=== PATIENT | female | born 1975 | race Caucasian/White ===

== ENCOUNTER 2017-04-08 12:38 | Observation (INO) | payer SELFPAY ==
[~2017-04-08] VITALS: Ht 160 cm; Wt 66.2 kg
[~2017-04-08 12:38] MED LIST: ALPR-138 PO
[2017-04-08 12:50] VITALS: BP 131/88; PULSE 70; RESP 18; TEMP 97.6; O2SAT 98
--- NOTE | 2017-04-08 12:51 | PD ---
HPI Chief Complaint: Chest Pain Time Seen by Provider: 12:49 Travel History International Travel<30 days: No Contact w/Intl Traveler<30days: No Traveled to known affect area: No History of Present Illness HPI 41-year-old female with history of no significant past medical issues, presents to the ER with 2 weeks history of intermittent sharp chest pains which is left parasternal, currently a 6 out of 10. She states it gets worse sometimes with coughing. She denies any fevers, shortness of breath, vomiting, or any recent significant coughing. She states that she has just noticed it in the past few weeks. She wanted to get checked out. She states that both her father and grandfather has had MIs in the past, in their 60s. Modifying Factors: Worse with coughing Associated Signs & Symptoms: Chest pains Risk Factors: None PFSH Past Medical History Anxiety: Yes Diminished Hearing: No Endocrine: Yes (HYPOGLYCEMIA) : 1 Para: 0 Miscarriage: 1 : 0 Social History Alcohol Use: Yes Tobacco Use: Yes (1PPD) Substance Use: No Allergies-Medications (Allergen,Severity, Reaction): Coded Allergies: Latex (Verified Allergy, Intermediate, Rash, 04/08/17) Reported Meds & Prescriptions Reported Meds & Active Scripts Active No Active Prescriptions or Reported Medications Review of Systems Except as stated in HPI: all other systems reviewed are Neg Physical Exam Narrative GENERAL: Well-developed middle age white female patient currently in mild distress. Awake and oriented 3. SKIN: Focused skin assessment warm/dry. HEAD: Atraumatic. Normocephalic. EYES: Pupils equal and round. No scleral icterus. No injection or drainage. ENT: No nasal bleeding or discharge. Mucous membranes pink and moist. NECK: Trachea midline. No JVD. CARDIOVASCULAR: Regular rate and rhythm. No murmur appreciated. RESPIRATORY: No accessory muscle use. Clear to auscultation. Breath sounds equal bilaterally. GASTROINTESTINAL: Abdomen soft, non-tender, nondistended. Hepatic and splenic margins not palpable. MUSCULOSKELETAL: No obvious deformities. No clubbing. No cyanosis. No edema. NEUROLOGICAL: Awake and alert. No obvious cranial nerve deficits. Motor grossly within normal limits. Normal speech. PSYCHIATRIC: Appropriate mood and affect; insight and judgment normal. Data Data Last Documented VS Vital Signs Date Time Temp Pulse Resp B/P Pulse Ox O2 Delivery O2 Flow Rate FiO2 04/08/17 13:56 125/77 131/81 04/08/17 13:51 57 16 97 Room Air 04/08/17 12:50 97.6 Orders Electrocardiogram (04/08/17 12:49) Ckmb (Isoenzyme) Profile (04/08/17 12:49) Complete Blood Count With Diff (04/08/17 12:49) Comprehensive Metabolic Panel (04/08/17 12:49) D-Dimer (04/08/17 12:49) Magnesium (Mg) (04/08/17 12:49) Prothrombin Time / Inr (Pt) (04/08/17 12:49) Act Partial Throm Time (Ptt) (04/08/17 12:49) Troponin I (04/08/17 12:49) Chest, Single Ap (04/08/17 12:49) Ecg Monitoring (04/08/17 12:49) Bilateral Bp Monitoring (04/08/17 12:49) Iv Access Insert/Monitor (04/08/17 12:49) Oximetry (04/08/17 12:49) Oxygen Administration (04/08/17 12:49) Sodium Chloride 0.9% Flush (Ns Flush) (04/08/17 13:00) Ed Urine Pregnancytest Poc (04/08/17 12:49) Labs Laboratory Tests Test 04/08/17 13:10 White Blood Count 7.6 TH/MM3 Red Blood Count 4.16 MIL/MM3 Hemoglobin 12.9 GM/DL Hematocrit 38.0 % Mean Corpuscular Volume 91.3 FL Mean Corpuscular Hemoglobin 31.0 PG Mean Corpuscular Hemoglobin 34.0 % Concent Red Cell Distribution Width 12.4 % Platelet Count 344 TH/MM3 Mean Platelet Volume 7.5 FL Neutrophils (%) (Auto) 57.9 % Lymphocytes (%) (Auto) 32.4 % Monocytes (%) (Auto) 8.4 % Eosinophils (%) (Auto) 0.7 % Basophils (%) (Auto) 0.6 % Neutrophils # (Auto) 4.5 TH/MM3 Lymphocytes # (Auto) 2.4 TH/MM3 Monocytes # (Auto) 0.6 TH/MM3 Eosinophils # (Auto) 0.1 TH/MM3 Basophils # (Auto) 0.0 TH/MM3 CBC Comment DIFF FINAL Differential Comment Prothrombin Time 10.1 SEC Prothromb Time International 0.9 RATIO Ratio Activated Partial 26.5 SEC Thromboplast Time D-Dimer Quantitative (PE/DVT) 0.29 MG/L FEU Sodium Level 141 MEQ/L Potassium Level 3.9 MEQ/L Chloride Level 105 MEQ/L Carbon Dioxide Level 28.7 MEQ/L Anion Gap 7 MEQ/L Blood Urea Nitrogen 9 MG/DL Creatinine 0.83 MG/DL Estimat Glomerular Filtration 77 ML/MIN Rate Random Glucose 132 MG/DL Calcium Level 8.6 MG/DL Magnesium Level 1.8 MG/DL Total Bilirubin 0.5 MG/DL Aspartate Amino Transf 11 U/L (AST/SGOT) Alanine Aminotransferase 18 U/L (ALT/SGPT) Alkaline Phosphatase 64 U/L Total Creatine Kinase 59 U/L Troponin I LESS THAN 0.02 NG/ML Total Protein 7.2 GM/DL Albumin 3.7 GM/DL MDM Medical Decision Making Medical Screen Exam Complete: Yes Emergency Medical Condition: Yes Medical Record Reviewed: Yes Interpretation(s) EKG shows NSR, no ST elevation or depression, and no arrhythmias. No significant T-wave inversions. Laboratory Tests Test 04/08/17 13:10 Monocytes (%) (Auto) 8.4 % (0.0-8.0) Estimat Glomerular Filtration 77 ML/MIN (>89) Rate Random Glucose 132 MG/DL (74-106) Aspartate Amino Transf 11 U/L (15-37) (AST/SGOT) Troponin I LESS THAN 0.02 NG/ML (0.02-0.05) Last 24 hours Impressions Chest X-Ray 04/08/17 1249 Signed Impressions: Service Date/Time: Saturday, April 08, 2017 13:13 - CONCLUSION: 1. No acute cardiopulmonary disease. Aneesh Azevedo MD Differential Diagnosis Chest painscostochondritis versus pneumonia versus PE versus ACS Narrative Course EKG, chest x-ray, lab work was otherwise unremarkable. At this point, my plan would be to admit her for chest pain in the chest pain center for further evaluation. Case was discussed with Dr. Nunez for admission. Diagnosis Primary Impression: Atypical chest pain Admitting Information Admitting Physician Requests: Admit Scripts No Active Prescriptions or Reported Meds Johann Rasmussen MD Apr 08, 2017 12:51
[2017-04-08 13:21] LABS: AUTOMATED NEUTROPHIL # 4.5 TH/MM3 (1.8-7.7); BASOPHIL % 0.6 % (0.0-2.0); EOSINOPHIL # 0.1 TH/MM3 (0-0.4); EOSINOPHIL % 0.7 % (0.0-4.0); HEMO FLAGS DIFF FINAL; LYMPH % 32.4 % (9.0-44.0); LYMPHOCYTE # 2.4 TH/MM3 (1.0-4.8); MEAN CELL VOLUME 91.3 FL (80.0-100.0); MONO % 8.4 % (0.0-8.0); NEUT % 57.9 % (16.0-70.0); PLATELET COUNT 344 TH/MM3 (150-450); RED BLOOD COUNT 4.16 MIL/MM3 (4.00-5.30); RED CELL DISTRIBUTION WIDTH 12.4 % (11.6-17.2); WHITE BLOOD COUNT 7.6 TH/MM3 (4.0-11.0)
[2017-04-08 13:25] LABS: CHLORIDE 105 MEQ/L (98-107); POTASSIUM 3.9 MEQ/L (3.5-5.1); SODIUM (NA) 141 MEQ/L (136-145)
[2017-04-08 13:29] LABS: ANION GAP 7 MEQ/L (5-15); BICARBONATE 28.7 MEQ/L (21.0-32.0); BLOOD UREA NITROGEN 9 MG/DL (7-18); MAGNESIUM 1.8 MG/DL (1.5-2.5)
[2017-04-08 13:32] LABS: ALT (GPT) 18 U/L (10-53); AST (GOT) 11 U/L (15-37); GLOMERULAR FILTRATION RATE 77 ML/MIN (>89)
[2017-04-08 13:33] LABS: TOTAL BILIRUBIN ADULT 0.5 MG/DL (0.2-1.0)
[2017-04-08 13:35] LABS: ALKALINE PHOSPHATASE 64 U/L (45-117)
--- NOTE | 2017-04-08 13:37 | RADRPT ---
EXAM DATE/TIME: 04/08/2017 13:13 [facility] COMPARISON: No previous studies available for comparison. INDICATIONS : Chest pain MEDICAL HISTORY : None. SURGICAL HISTORY : None. ENCOUNTER: Initial ACUITY: 2 months PAIN SCORE: 6/10 LOCATION: Left middle chest FINDINGS: A single view of the chest demonstrates the lungs to be symmetrically aerated without evidence of mas s, infiltrate or effusion. The cardiomediastinal contours are unremarkable. Osseous structures are intact. CONCLUSION: 1. No acute cardiopulmonary disease. Aneesh Azevedo MD on April 08, 2017 at 13:36 Board Certified Radiologist. This report was verified electronically.
[2017-04-08 13:41] LABS: APTT (PATIENT) 26.5 SEC (24.3-30.1); INTERNATIONAL NORMALIZED RATIO 0.9 RATIO; PROTHROMBIN TIME - PATIENT 10.1 SEC (9.8-11.6)
[2017-04-08 13:44] LABS: CREATINE KINASE 59 U/L (26-192)
[2017-04-08 13:55] VITALS: BP 131/81; PULSE 56; RESP 16; O2SAT 97
[2017-04-08 13:56] VITALS: BP_SYST 125; BP_SYST 131; BP_DIAS 77; BP_DIAS 81
[2017-04-08] MEDS ORDERED: ACETAMINOPHEN 325 MG TAB PO PRN (14:15)
--- NOTE | 2017-04-08 14:23 | HHI.HP ---
[facility] No Primary Care Physician Admission Diagnosis atypical chest pain Diagnoses: (1) Atypical chest pain Diagnosis: Principal Chief Complaint: chest pain Travel History International Travel<30 Days: No Contact w/Intl Traveler <30 Da: No Traveled to Known Affected Are: No History of Present Illness patient is a 41 y/o female with no significant past medical history who presented with chest pain. she says that she's been under a lot of stress and had to do lots of physical work recently. she says that she's had chest pain for the past two months. pain is sharp,intermittent with no radiation. the pain is localized to left lateral chest.pain has been associated with on and off nausea and sob. Review of Systems Constitutional: DENIES: Fever, Weight loss, Chills, Night Sweats Eyes: DENIES: Blurred vision, Diplopia, Vision loss, Double Vision Ears, nose, mouth, throat: DENIES: Tinnitus, Vertigo, Throat pain, Epistaxis Respiratory: DENIES: Apneas, Cough, Snoring, Wheezing, Hemoptysis, Sputum production, Shortness of breath Cardiovascular: COMPLAINS OF: Chest pain, Dyspnea on Exertion, DENIES: Palpitations, Syncope, PND, Lower Extremity Edema, Orthopnea, Claudication Gastrointestinal: COMPLAINS OF: Nausea, DENIES: Abdominal pain, Black stools, Bloody stools, Constipation, Diarrhea, Vomiting, Difficulty Swallowing, Anorexia Genitourinary: DENIES: Urinary frequency, Urgency, Hematuria, Dysuria Musculoskeletal: DENIES: Joint pain, Muscle aches, Stiffness, Joint Swelling Integumentary: DENIES: Rash Neurologic: DENIES: Abnormal gait, Headache, Localized weakness, Paresthesias, Seizures, Speech Problems, Tremor, Poor Balance Psychiatric: DENIES: Anxiety, Confusion, Mood changes, Depression, Hallucinations, Agitation, Suicidal Ideation, Homicidal Ideation, Delusions Past Family Social History Past Medical History not significant. Reported Medications none reported. Allergies: Coded Allergies: Latex (Verified Allergy, Intermediate, Rash, 04/08/17) Active Ordered Medications Current Medications Sodium Chloride (NS Flush) 2 ml UNSCH PRN IVF FLUSH AFTER USING IV ACCESS; Start 04/08/17 at 13:00 Family History heart attack in the father at his 60's. Social History smokes a pack in one week- drinks occasionally- denies illicit drug abuse. Physical Exam Vital Signs Vital Signs Date Time Temp Pulse Resp B/P Pulse Ox O2 Delivery O2 Flow Rate FiO2 04/08/17 13:56 125/77 131/81 04/08/17 13:51 57 16 97 Room Air 04/08/17 12:50 97.6 70 18 131/88 98 04/08/17 12:50 98 Room Air 04/08/17 12:50 98 Room Air Physical Exam GENERAL: This is a well-nourished, well-developed patient, in no apparent distress. SKIN: No rashes, ecchymoses or lesions. Cool and dry. HEAD: Atraumatic. Normocephalic. No temporal or scalp tenderness. EYES: Pupils equal round and reactive. Extraocular motions intact. No scleral icterus. No injection or drainage. ENT: Nose without bleeding, purulent drainage or septal hematoma. Throat without erythema, tonsillar hypertrophy or exudate. Uvula midline. Airway patent. NECK: Trachea midline. No JVD or lymphadenopathy. Supple, nontender, no meningeal signs. CARDIOVASCULAR: Regular rate and rhythm without murmurs, gallops, or rubs. RESPIRATORY: Clear to auscultation. Breath sounds equal bilaterally. No wheezes , rales, or rhonchi. GASTROINTESTINAL: Abdomen soft, non-tender, nondistended. No hepato-splenomegaly , or palpable masses. No guarding. MUSCULOSKELETAL: Extremities without clubbing, cyanosis, or edema. No joint tenderness, effusion, or edema noted. No calf tenderness. Negative Homans sign bilaterally. NEUROLOGICAL: Awake and alert. Cranial nerves II through XII intact. Motor and sensory grossly within normal limits. Five out of 5 muscle strength in all muscle groups. Normal speech. Laboratory Laboratory Tests Test 04/08/17 13:10 White Blood Count 7.6 Red Blood Count 4.16 Hemoglobin 12.9 Hematocrit 38.0 Mean Corpuscular Volume 91.3 Mean Corpuscular Hemoglobin 31.0 Mean Corpuscular Hemoglobin 34.0 Concent Red Cell Distribution Width 12.4 Platelet Count 344 Mean Platelet Volume 7.5 Neutrophils (%) (Auto) 57.9 Lymphocytes (%) (Auto) 32.4 Monocytes (%) (Auto) 8.4 Eosinophils (%) (Auto) 0.7 Basophils (%) (Auto) 0.6 Neutrophils # (Auto) 4.5 Lymphocytes # (Auto) 2.4 Monocytes # (Auto) 0.6 Eosinophils # (Auto) 0.1 Basophils # (Auto) 0.0 CBC Comment DIFF FINAL Differential Comment Prothrombin Time 10.1 Prothromb Time International 0.9 Ratio Activated Partial 26.5 Thromboplast Time D-Dimer Quantitative (PE/DVT) 0.29 Sodium Level 141 Potassium Level 3.9 Chloride Level 105 Carbon Dioxide Level 28.7 Anion Gap 7 Blood Urea Nitrogen 9 Creatinine 0.83 Estimat Glomerular Filtration 77 Rate Random Glucose 132 Calcium Level 8.6 Magnesium Level 1.8 Total Bilirubin 0.5 Aspartate Amino Transf 11 (AST/SGOT) Alanine Aminotransferase 18 (ALT/SGPT) Alkaline Phosphatase 64 Total Creatine Kinase 59 Troponin I LESS THAN 0.02 Total Protein 7.2 Albumin 3.7 Result Diagram: 04/08/17 1310 04/08/17 1310 Imaging Last Impressions Chest X-Ray 04/08/17 1249 Signed Impressions: Service Date/Time: Saturday, April 08, 2017 13:13 - CONCLUSION: 1. No acute cardiopulmonary disease. Aneesh Azevedo MD EKG; sinus rhythm with no acute ST-T changes. Assessment and Plan Assessment and Plan A/P - atypical chest pain- had aspirin at home earlier- will trend the enzymes- although the ACS is unlikely and the pain is more musculoskeletal continue with pain control Discussed Condition With ER physician and the patient. Manuelito Ortega MD Apr 08, 2017 14:23
[2017-04-08] MEDS ORDERED: ONDANSETRON HCL 4 MG/2 ML VIAL IV PUSH PRN (14:30)
[2017-04-08 14:55] VITALS: BP 123/76; PULSE 60; RESP 16; O2SAT 97
[2017-04-08 15:30] VITALS: BP 125/80; PULSE 58; RESP 16; TEMP 98.2; O2SAT 96
[2017-04-08] MEDS: KETOROLAC TROMETHAMINE 30 MG/ML (IVP) VIAL IV PUSH PRN (16:49)
[2017-04-08] MEDS: SODIUM CHLOR 0.9% 1000 ML INJ 1,000 ML IV SCH (17:51)
[2017-04-08] MEDS ORDERED: MORPHINE SULFATE 4 MG/ML INJ IV PUSH ONE (18:45)
[2017-04-08 20:00] VITALS: BP 142/83; PULSE 53; PULSE 58; RESP 18; TEMP 97.4; O2SAT 98
[2017-04-08] MEDS: SODIUM CHLORIDE 0.9% FLUSH 10 ML FLUSH IVF PRN (20:57)
[2017-04-09] VITALS: BP 132/79; PULSE 47; RESP 18; TEMP 97.4; O2SAT 100
[2017-04-09] MEDS: KETOROLAC TROMETHAMINE 30 MG/ML (IVP) VIAL IV PUSH PRN (01:01)
[2017-04-09] MEDS: SODIUM CHLORIDE 0.9% FLUSH 10 ML FLUSH IVF PRN ×2 (01:01→05:45)
[2017-04-09 04:00] VITALS: BP 125/85; PULSE 70; RESP 18; TEMP 97.8; O2SAT 99
[2017-04-09] MEDS: SODIUM CHLOR 0.9% 1000 ML INJ 1,000 ML IV SCH (05:44)
[2017-04-09 08:00] VITALS: BP 121/75; PULSE 53; RESP 16; TEMP 97.4; O2SAT 98
--- NOTE | 2017-04-09 08:23 | HHI.PR ---
Subjective Remarks in no acute distress. chest pain has much improved. no other complaints. Objective Vitals Vital Signs Date Time Temp Pulse Resp B/P Pulse Ox O2 Delivery O2 Flow Rate FiO2 04/09/17 04:00 97.8 70 18 125/85 99 04/09/17 00:00 97.4 47 18 132/79 100 04/08/17 20:00 97.4 58 18 142/83 98 04/08/17 20:00 53 04/08/17 15:30 98.2 58 16 125/80 96 04/08/17 14:55 60 16 123/76 97 Room Air 04/08/17 13:56 125/77 131/81 04/08/17 13:55 56 16 131/81 97 Room Air 04/08/17 13:51 57 16 97 Room Air 04/08/17 12:50 97.6 70 18 131/88 98 04/08/17 12:50 98 Room Air 04/08/17 12:50 98 Room Air I/O 04/08/17 04/08/17 04/08/17 04/09/17 04/09/17 04/09/17 06:59 14:59 22:59 06:59 14:59 22:59 Intake Total 588 ml 782 ml Balance 588 ml 782 ml Intake Oral 420 ml IV Total 168 ml 782 ml # Voids 2 # Bowel Movements 0 Result Diagram: 04/08/17 1310 04/08/17 1310 Objective Remarks Last Impressions Chest X-Ray 04/08/17 1249 Signed Impressions: Service Date/Time: Saturday, April 08, 2017 13:13 - CONCLUSION: 1. No acute cardiopulmonary disease. Aneesh Azevedo MD Medications and IVs Current Medications Sodium Chloride (NS Flush) 2 ml UNSCH PRN IVF FLUSH AFTER USING IV ACCESS Last administered on 04/09/17 05:45; Start 04/08/17 at 13:00 Acetaminophen 650 mg 650 mg Q4H PRN PO PAIN/FEVER; Start 04/08/17 at 14:15 Sodium Chloride (NS 1000 ml Inj) 1,000 ml @ 75 mls/hr [id number] IV Last administered on 04/09/17 05:44; Start 04/08/17 at 14:15 Ondansetron HCl (Zofran Inj) 4 mg Q8H PRN IV PUSH NAUSEA; Start 04/08/17 at 14: 30 Ketorolac Tromethamine (Toradol Inj) 15 mg Q8H PRN IV PUSH PAIN- NOT RELIEVED BY TYLENOL Last administered on 04/09/17 01:01; Start 04/08/17 at 16:30; Stop 04/09/17 at 08:00; Status DC Morphine Sulfate (Morphine Inj) 2 mg ONCE ONCE IV PUSH Last administered on 19:03; Start 04/08/17 at 18:45; Stop 04/08/17 at 18:47; Status DC A/P Assessment and Plan - atypical chest pain- cardiac enzymes negative. stress test today. continue with pain control Discharge Planning dc home today if stress test negative. d/w the patient. Manuelito Ortega MD Apr 09, 2017 08:23
--- NOTE | 2017-04-09 09:26 | HHI.DCPOC ---
Discharge Care Plan Diagnosis: (1) Atypical chest pain Goals to Promote Your Health * To prevent worsening of your condition and complications * To maintain your health at the optimal level Directions to Meet Your Goals Take your medications as prescribed Follow your dietary instruction Follow activity as directed Keep your appointments as scheduled Take your immunizations and boosters as scheduled If your symptoms worsen call your PCP, if no PCP go to Urgent Care Center or Emergency Room Smoking is Dangerous to Your Health. Avoid second hand smoke Call the 24-hour hour crisis hotline for domestic abuse at Jeovanny Harris Apr 09, 2017 09:25
--- NOTE | 2017-04-10 12:49 | EKG ---
Date Performed: 04/09/2017 Time Performed: 07:55:53 PTAGE: 41 years EKG: SINUS BRADYCARDIA WITH SINUS ARRHYTHMIA BORDERLINE ECG PREVIOUS TRACING : 04/08/2017 12.53 Since previous tracing, no significant change noted DOCTOR: Kurt Champion Interpretating Date/Time 04/10/2017 12:47:07
--- NOTE | 2017-04-10 12:50 | EKG ---
Date Performed: 04/08/2017 Time Performed: 12:53:47 PTAGE: 41 years EKG: Sinus rhythm NORMAL ECG NO PREVIOUS TRACING DOCTOR: Kurt Champion Interpretating Date/Time 04/10/2017 12:48:13
--- NOTE | 2017-04-10 12:53 | TR ---
Date Performed: 04/09/2017 Time Performed: 09:02:01 DOCTOR: Kurt Champion DRUG LIST: CLINICAL HISTORY: CHEST PAIN REASON FOR TEST: REASON FOR ENDING: Completed Protocol OBSERVATION: Chest Pain: None Arrhythmia: None CONCLUSION: Patient tolerated BERNARDINO protocol with Total Exercise Time=7:13 Maximum FR=077 % Targ et HR Uwxhndll=455.0% Maximum PU=335/92, Testing stopped secondary to goals acheived, Patient reached and surpassed target HR, During peak exercise, patient was asymptomatic, upsloping ST segments, HR a nd BP appropriate response to exercies, Recovery period, HR and BP returned to baseline COMMENTS: Patient exercised using the Bernardino protocol. No electrocardiographic changes were seen to suggest ischemia. Hemodynamic response to exercise was normal. No significant arrhythmia was prese nt.
== END 2017-04-09 11:00 | disposition home or self-care (01) ==
LOC: PHED 12:38 → PHEDA 14:00 → PH3A 15:22
PROVIDERS: ADMIT Internal Medicine; ATTEND Internal Medicine
DX: R07.89 Other chest pain (principal); R00.1 Bradycardia, unspecified; F41.9 Anxiety disorder, unspecified; Z82.49 Family history of ischemic heart disease and other diseases of the circulatory system; F17.200 Nicotine dependence, unspecified, uncomplicated
CPT/HCPCS: 71010; 80053; 82550; 83735; 84484; 84703; 85025; 85379; 85610; 85730; 93005; 93017; 99285; G0378; J1885; J2270; J7030